=== PATIENT | female | born 1955 | race Caucasian/White ===

== ENCOUNTER 2017-07-20 05:44 | Day surgery (SDC) | payer OTHER ==
[2017-07-20] MEDS ORDERED: VANCOMYCIN HCL/NORMAL SALINE 250 ML IV ONE (06:00)
[2017-07-20] MEDS ORDERED: LR 1,000 ML IV ONE (06:26)
[2017-07-20] MEDS ORDERED: LIDOCAINE 1% 2 ML INJ ID PRN (06:26)
--- NOTE | 2017-07-20 06:43 | PDHPUP ---
History & Physical Update H&P update statement: This history and physical update is based on an assessment of the patient which was completed after admission or registration (within 24 hours), but prior to the surgery/procedure. H&P update: H&P reviewed & patient examined, no change in patient's condition since H&P completed
[2017-07-20] MEDS ORDERED: THROMBIN (BOVINE) 5,000 UNIT VIAL TP ONE (06:47)
[2017-07-20] MEDS ORDERED: BACITRACIN 50,000 UNITS/10 ML SYR IRR ONE (06:48)
[2017-07-20] MEDS ORDERED: CHLORHEXIDINE GLUC HIBICLENS 118 ML BTL TP ONE (06:48)
[2017-07-20] MEDS ORDERED: BUPIVACAINE 0.25% 30 ML SDV ONE ×2 (06:48→08:13)
--- NOTE | 2017-07-20 06:59 | PDANEPAE ---
ANE History of Present Illness 61 yo F with spinal cord stimulator here for removal ANE Past Medical History - Cardiovascular History Hx Hypertension: No Hx Arrhythmias: No Hx Chest Pain: No Hx Coronary Artery / Peripheral Vascular Disease: No Hx CHF / Valvular Disease: No Hx Palpitations: No - Pulmonary History Hx COPD: No Hx Asthma/Reactive Airway Disease: No Hx Recent Upper Respiratory Infection: No Hx Oxygen in Use at Home: No Hx Sleep Apnea: No Sleep Apnea Screening Result - Last Documented: Negative Pulmonary History Comment: HX OF BRONCITIS, SJOGRENS SYNDROME - Neurologic History Hx Cerebrovascular Accident: No Hx Seizures: No Hx Dementia: No - Endocrine History Hx Diabetes: No - Renal History Hx Renal Disorders: No - Liver History Hx Hepatic Disorders: No - Neurological & Psychiatric Hx Hx Neurological and Psychiatric Disorders: Yes Neurological / Psychiatric History Comment: DX CRPS. ANXIETY, DEPRESSION. - Cancer History Hx Cancer: No - Congenital Disorder History Hx Congenital Disorders: No - GI History Hx Gastrointestinal Disorders: Yes Gastrointestinal History Comment: REFLUX - Other Health History Other Health History: NONE - Chronic Pain History Chronic Pain: Yes (R LEG, BACK OVERAL PAIN FROM SHOJGRANS,ARTHRITIS IN HAND.) - Surgical History Prior Surgeries: AUG 2016 BUNIONECTOMY 2015 BREAST REDUCTION,2009 3 LEVEL FUSIONS1 -L3 ANE Review of Systems Review of Systems: - Exercise capacity METS (RN): 4 METS ANE Patient History - Allergies Allergies/Adverse Reactions: epinephrine [Epinephrine] Allergy (Severe, Verified 07/20/17 06:16) INCREASES HEART RATE cephalexin monohydrate [From Keflex] Allergy (Verified 07/20/17 06:16) Hives morphine Allergy (Verified 07/20/17 06:18) Vomiting SEASONAL Allergy (Intermediate, Uncoded 07/20/17 06:17) SNEEZY ITCHY EYES - Home Medications Home Medications: Aspirin EC 81 mg (*) 06/28/17 [Last Taken 07/13/17] Atorvastatin Calcium 06/28/17 [Last Taken 07/19/17 22:00] Cevimeline HCl 06/28/17 [Last Taken 07/20/17 05:15] Cymbalta 06/28/17 [Last Taken 07/19/17 22:00] Diazepam 06/28/17 [Last Taken 07/16/17] Fish Oil 1000 mg (*) 06/28/17 [Last Taken 07/13/17] Flexeril 06/28/17 [Last Taken 07/19/17 21:30] Imipramine HCl 06/28/17 [Last Taken 07/19/17 22:00] Levothyroxine 06/28/17 [Last Taken 07/20/17 05:15] Multi-Vitamin Daily 06/28/17 [Last Taken 07/13/17] Oxycodone HCl 06/28/17 [Last Taken 07/19/17 21:30] Voltaren Gel (*) 06/28/17 [Last Taken 07/13/17] Zyrtec 06/28/17 [Last Taken 07/19/17 22:00] - NPO status NPO Status: no food or drink >8 hours NPO Since - Liquids (Date): 07/20/17 NPO Since - Liquids (Time): 02:00 NPO Since - Solids (Date): 07/19/17 NPO Since - Solids (Time): 23:45 - Anes Hx Anes Hx: no prior problems - Smoking Hx Smoking Status: Never smoked - Alcohol Use Alcohol Use: None - Family Anes Hx Family Anes Hx: none Family Hx Anesthesia Complications: NONE ANE Labs/Vital Signs - Vital Signs Blood Pressure: 115/83 Heart Rate: 93 Respiratory Rate: 16 O2 Sat (%): 91 Height: 161.29 cm Weight: 77.111 kg ANE Physical Exam - Airway Neck exam: FROM Mallampati Score: Class 2 Mouth exam: normal dental/mouth exam - Pulmonary Pulmonary: no respiratory distress, clear to auscultation - Cardiovascular Cardiovascular: regular rate and rhythym, no murmur, rub, or gallop - ASA Status ASA Status: III ANE Anesthesia Plan Anesthesia Plan: general endotracheal anesthesia
[2017-07-20] MEDS ORDERED: MIDAZOLAM 2 MG/2 ML VIAL IVP ONE (07:01)
[2017-07-20] MEDS ORDERED: fentaNYL 100 MCG/2 ML INJ ONE (07:20)
[2017-07-20] MEDS ORDERED: ROCURONIUM 50 MG/5 ML VIAL ONE (07:20)
[2017-07-20] MEDS ORDERED: LIDOCAINE 2% 100 MG/5 ML SYR ONE (07:20)
[2017-07-20] MEDS ORDERED: PROPOFOL 200 MG/20 ML VIAL ONE ×2 (07:20)
[2017-07-20] MEDS ORDERED: DEXAMETHASONE 4 MG/ML VIAL ONE (08:20)
[2017-07-20] MEDS ORDERED: ONDANSETRON 4 MG/2 ML VIAL IVP PRN (08:25)
[2017-07-20] MEDS ORDERED: NALOXONE HCL 0.4 MG/ML INJ IVP PRN (08:25)
[2017-07-20] MEDS ORDERED: HYDROmorphONE/DILAUDID 1 MG/ML INJ IVP PRN (08:25)
[2017-07-20] MEDS ORDERED: fentaNYL 100 MCG/2 ML INJ IVP PRN (08:25)
[2017-07-20] MEDS ORDERED: PROMETHAZINE HCL 25 MG/ML INJ IVP PRN (08:25)
[2017-07-20] MEDS ORDERED: SUGAMMADEX SODIUM 200 MG/2 ML VIAL IVP ONE (08:34)
[2017-07-20] MEDS ORDERED: KETOROLAC 30 MG/1 ML SDV ONE (08:47)
--- NOTE | 2017-07-20 09:14 | SOAPPROG ---
SOAP Progress Note Assessment/Plan: Post Op Visit: S: Awake and alert. NAD. Pt with expected lower back pain O: AFVSS/PERRLA/EOMI no droop CN 2-12 grossly intact +lt touch 5/5 BUE/BLE = CDI A/P: 61 yo female that is s/p removal of SCS lead -orders in place -MRI ordered for today -dc when MRI done -follow up with Dr Fortune team in 2-3 weeks for a post op visit -call with any questions or concerns 07/20/17 09:11 Objective: Vital Signs Temp Pulse Resp BP Pulse Ox 36.7 C 93 16 115/83 H 91 L 07/20/17 07:10 07/20/17 07:10 07/20/17 07:10 07/20/17 07:10 07/20/17 07:10 ICD10 Worksheet Patient Problems: Problems Problem Status Onset Lumbago Acute Lumbar radicular pain Acute Lumbar stenosis Acute Spinal cord stimulator dysfunction Acute - ICD10 Problem Qualifiers (1) Lumbago Qualifiers: Chronicity: unspecified Back pain laterality: right Sciatica presence: with sciatica Sciatica laterality: sciatica of right side Qualified Code(s) : M54.41 - Lumbago with sciatica, right side (2) Lumbar radicular pain (3) Lumbar stenosis Qualifiers: Neurogenic claudication status: without neurogenic claudication Qualified Code(s): M48.061 - Spinal stenosis, lumbar region without neurogenic claudication (4) Spinal cord stimulator dysfunction Qualifiers: Encounter type: sequela Qualified Code(s): T85.192S - Other mechanical complication of implanted electronic neurostimulator of spinal cord electrode ( lead), sequela
[2017-07-20 09:17] VITALS: PULSE 96
[2017-07-20 10:05] VITALS: BP 97/67; RESP 16; TEMP 97.5
--- NOTE | 2017-07-20 10:19 | GOP ---
[f rep st] OPERATIVE REPORT DATE OF OPERATION: 07/20/2017 SURGEON: Boom Gaffney MD NEUROSURGEON: Boom Gaffney M.D. PLUSH DRESSER: Vin Rodriguez P.A.-C. PREOPERATIVE DIAGNOSIS: 1. Chronic pain syndrome. 2. Prior lumbar fusion. 3. Paddle electrode leads in the spinal epidural space on the right-hand side. POSTOPERATIVE DIAGNOSIS: 1. Chronic pain syndrome. 2. Prior lumbar fusion. 3. Paddle electrode leads in the spinal epidural space on the right-hand side. PROCEDURE PERFORMED: 1. Posterior removal of paddle type electrode leads from the spinal epidural space. 2. Fluoroscopy. FINDINGS: ESTIMATED BLOOD LOSS: 10 mL. INDICATIONS: The patient is a 61-year-old who underwent a relatively successful lumbar fusion years ago by myself, and at the same time had placement of paddle type electrode leads in the spinal epidur al space and along the shoulders of the exiting lumbosacral nerve roots on the right-hand side. Thes e were never connected. They were coiled wires subcutaneously and we never did connect them, but she was developing increasing pain and could not have an MRI because of these paddle type stimulator javad ctrode leads. It was, in fact, a single paddle that had been cut and laid upon the exiting nerve she ath at the lumbar cistern. She wanted to have these removed so that she could have an MRI, and this was offered to her. The risk of spinal fluid leak was discussed and she understood this could occur, but it was a low pro bability. We also discussed the incomplete removal of electrode leads and retained electrodes, but t his risk too is quite small. There is a slight risk of infection. She wanted to proceed, despite th geovanny risks. DESCRIPTION OF PROCEDURE: The patient was taken to the operating room and placed in the supine posit ion. General anesthesia was begun. She was flipped prone onto the Antonio frame. Care was taken to pad all points of contact. Her back was sterilely prepped and draped in the usual fashion. A localizing x-ray was taken. We made a midline incision at the rostral aspect of her prior incision and dissected down using the p lasma blade instead of the Bovie cautery. We dissected onto the electrodes themselves, which were pr otected by insulating sheaths. We removed the electrode wires themselves and followed these down to the subfascial anchors. We then opened the fascia more widely. The subfascial anchors were removed and we pulled on the electrodes themselves hoping that they would be delivered. They would not, as t his was in fact a paddle type lead. We then began with the lower lead, took a Kerrison punch and then began removing the soft tissue and bone that lay on top of the electrode lead and worked our way down into the epidural space with the d ura located medially. We then followed the electrode lead out along the shoulder of the exiting nerv e root. Once we had the entire base of the paddle type lead exposed, we then gently pulled on it and the entire lead, including 4 electrodes, was removed. We then did likewise for the more rostral electrode lead. This took considerable time because these were not percutaneous round leads, but they were flat leads. The rostral lead was dissected along th e wire using a 3 Kerrison punch and we worked our way out to the base of the paddle type lead, and on ce this had been exposed we gently pulled on the wire and both of them were removed in their entirety . We identified all of the paddle type electrodes themselves. We shot x-rays, AP and lateral, and the entire system had been completely removed. The spinal hardware itself was not disturbed. We then irrigated with antibiotic saline solution and then closed the incision in multiple layers using Vicryl sutures. There were no complications. COMPLICATIONS: None. /[id number]/MODL
[2017-07-20] MEDS ORDERED: VANCOMYCIN PHARMACY TO DOSE MISC ONE (10:26)
[2017-07-20 12:59] VITALS: O2SAT 98
== END 2017-07-20 12:55 | disposition home or self-care (01) ==
LOC: FSGY 05:44
PROVIDERS: ATTEND Neurological Surgery
PROC: B01B1ZZ Fluoroscopy of Spinal Cord using Low Osmolar Contrast (ICD-10-PCS; principal; 2017-07-20 07:30)
PROC: 00PU0MZ Removal of Neurostimulator Lead from Spinal Canal, Open Approach (ICD-10-PCS; principal; 2017-07-20 07:30)
DX: T85.192S Other mechanical complication of implanted electronic neurostimulator of spinal cord electrode (lead), sequela (principal); Z98.1 Arthrodesis status; M48.061 Spinal stenosis, lumbar region without neurogenic claudication; M54.16 Radiculopathy, lumbar region
CPT/HCPCS: J0171; J1100; J1885; J2001; J2250; J2704; J3010; J3370

== ENCOUNTER → 2017-09-26 | Outpatient (CLI) | payer OTHER | LOC: FIMAGING 15:55 | PROVIDERS: ATTEND Neurological Surgery | DX: M51.36 Other intervertebral disc degeneration, lumbar region (principal); Z98.1 Arthrodesis status ==

== ENCOUNTER → 2018-07-19 | Outpatient (CLI) | payer OTHER | LOC: FIMAGING 18:45 | PROVIDERS: ATTEND Physician Assistant | DX: M54.16 Radiculopathy, lumbar region (principal); Z98.1 Arthrodesis status ==

== ENCOUNTER → 2018-10-18 | Outpatient (CLI) | payer OTHER | LOC: BHFA 14:00 | PROVIDERS: ATTEND Internal Medicine Cardiovascular Disease | DX: R07.89 Other chest pain (principal) | CPT/HCPCS: 78452; 93017; A9500; J2785 ==

== ENCOUNTER → 2019-04-13 | Outpatient (CLI) | payer OTHER | LOC: FIMAGING 18:31 ==